=== PATIENT | male | born 1995 | race Caucasian/White ===

== ENCOUNTER 2020-04-20 18:51 | Inpatient (IN) | payer BC, OTHER ==
[2020-04-20 19:49] LABS: #Basophils 0.1 thou/uL (0.0-0.2); #Eosinphils 0.1 thou/uL (0.0-0.7); #Monocytes 0.5 thou/uL (0.11-0.59); #Neutrophils 4.9 thou/uL (1.40-6.50); %Basophils 1.2 % (0.0-1.0); %Eosinophils 1.2 % (0.0-10.0); %Monocytes 6.5 % (0.0-10.0); %Neutrophils 65.1 % (42.0-75.0); Hemoglobin 17.4 g/dL (14.0-18.0); Mean Corpuscular HGB CONC 34.5 g/dL (32.0-36.0); Mean Corpuscular Hemoglobin 29.4 pg (27.0-31.0); Mean Corpuscular Volume 85.2 fL (78.0-98.0); Mean Platelet Volume 10.3 fL (7.4-10.4); Platelet Count 149 thou/uL (130-400); RBC Distribution Width 11.5 % (11.5-14.5); Red Blood Cell (RBC) Count 5.93 mill/uL (4.70-6.10); White Blood Cell (WBC) Count 7.5 thou/uL (4.8-10.8)
[2020-04-20 20:22] LABS: ALT (SGPT) 146 U/L (8-55); AST (SGOT) 577 U/L (5-34); Albumin 4.5 g/dL (3.5-5.0); Alkaline Phosphatase 72 U/L (40-110); Anion Gap 15 mmol/L (10-20); BUN (Urea Nitrogen) 17 mg/dL (8.9-20.6); Bilirubin, Total 1.1 mg/dL (0.2-1.2); Calc. Creatinine Clearance 0 mL/min (70-130); Calcium 9.3 mg/dL (7.8-10.44); Carbon Dioxide 26 mmol/L (22-29); Chloride 103 mmol/L (98-107); Estimated GFR-MDRD 79; Globulin 2.7 g/dL (2.4-3.5); Glucose 128 mg/dL (70-105); Protein, Total 7.2 g/dL (6.0-8.3); Sodium 140 mmol/L (136-145)
[2020-04-20 21:28] LABS: Bacteria/HPF None Seen HPF (None Seen); Bilirubin Negative (Negative); Blood, Urine 3+ (Negative); Clarity Turbid (Clear); Glucose, Urine (Dipstick) Normal (Negative); Ketone, Urine Negative (Negative); Leukocyte Negative Leu/uL (Negative); Mucous/LPF Rare LPF (<2+); Nitrite Negative (Negative); Protein, Urine (Dipstick) 100 mg/dL (Neg-Trace); RBC/HPF 0-3 HPF (0-3); Squamous Epithelial None Seen HPF (0-3); Urobilinogen Normal mg/dL (Less than 2); WBC/HPF 0-3 HPF (0-3); pH, Urine 7.5 (5.0-9.0)
--- NOTE | 2020-04-20 22:59 | PDOC.FPRHP ---
- History of Present Illness Chief Complaint: Muscle pain and swelling History of Present Illness: 25 yo male with no significant PMH who presents to the ED for muscle pain and swelling. The patient started crossfit earlier this year. On Friday he attended a crossfit workout were he did multiple pull-ups and the next day noticed that he was sore. This soreness progressively worsened over the week and he began to noticing swelling in his bilateral upper extremities. He denies any pain or swelling of his lower extremities. He reports that his urine seems to be more yellow, but denies gross blood or brown urine. ED Course: 2 L bolus NS, 250 mls/hr NS - Allergies/Adverse Reactions Allergies Allergy/AdvReac Type Severity Reaction Status Date / Time meperidine [From Demerol] Allergy Verified 04/21/20 05:19 - Home Medications Medication Instructions Recorded Confirmed Type Multivit-Minerals/FA/Lycopene [One 1 tablet PO DAILY 04/21/20 04/21/20 History Daily For Men] [place]-3 Fatty Acids [[place]-3] 1 capsule PO DAILY 04/21/20 04/21/20 History - History PMHx: Migraine PSHx: femur, clavicle, 5th digit, wisdom teeth FHx: denies family hx Social: lives in [place], attends [employer]; Denies T/D, reports social drinking - Review of Systems General: denies: fever/chills, fatigue Eyes: denies: eye pain, vision changes ENT: denies: nasal congestion, rhinorrhea Respiratory: denies: cough, shortness of breath Cardiovascular: reports: edema. denies: chest pain Genitourinary: denies: dysuria Skin: denies: rashes, lesions Musculoskeletal: reports: pain, tenderness, stiffness, swelling Neurological: denies: numbness, weakness Psychological: denies: anxiety, depression - Vital signs BP: 147/87 HR: 91 RR: 18 Tmax: 98.4 Pox: 100% on RA Wt: 73 kg - Physical Exam Constitutional: NAD HEENT: normocephalic and atraumatic, grossly normal vision, grossly normal hearing Neck: supple, FROM Heart: RRR, normal S1/S2, no murmurs/rubs/gallops Lungs: CTAB, no respiratory distress, good air movement Abdomen: soft, non-tender, bowel sounds present -Musculoskeletal: Noticeably edematous and warm HAFSA extremities, unable to fully extend upper extremities Neurological: no focal deficit, CN II-XII intact, normal sensation Skin: no rash/lesions, no jaundice Heme/Lymphatic: no unusual bruising or bleeding, no purpura, no petechia Psychiatric: normal mood and affect, good judgment and insight, intact recent and remote memory FMR H&P: Results - Labs Result Diagrams: 04/20/20 19:35 04/28/20 04:44 Lab results: WBC 7.5 thou/uL (4.8-10.8) 04/20/20 19:35 Hgb 17.4 g/dL (14.0-18.0) 04/20/20 19:35 Hct 50.5 % (42.0-52.0) 04/20/20 19:35 MCV 85.2 fL (78.0-98.0) 04/20/20 19:35 Plt Count 149 thou/uL (130-400) 04/20/20 19:35 Neutrophils % 65.1 % (42.0-75.0) 04/20/20 19:35 Sodium 140 mmol/L (136-145) 04/20/20 19:35 Potassium 4.0 mmol/L (3.5-5.1) 04/20/20 19:35 Chloride 103 mmol/L (98-107) 04/20/20 19:35 Carbon Dioxide 26 mmol/L (22-29) 04/20/20 19:35 BUN 17 mg/dL (8.9-20.6) 04/20/20 19:35 Creatinine 1.13 mg/dL (0.7-1.3) 04/20/20 19:35 Glucose 128 mg/dL (70-105) H 04/20/20 19:35 Calcium 9.3 mg/dL (7.8-10.44) 04/20/20 19:35 Total Bilirubin 1.1 mg/dL (0.2-1.2) 04/20/20 19:35 AST 577 U/L (5-34) H 04/20/20 19:35 ALT 146 U/L (8-55) H 04/20/20 19:35 Alkaline Phosphatase 72 U/L (40-110) 04/20/20 19:35 Creatine Kinase Greater than 81426 U/L (30-200) H 04/20/20 19:35 Serum Total Protein 7.2 g/dL (6.0-8.3) 04/20/20 19:35 Albumin 4.5 g/dL (3.5-5.0) 04/20/20 19:35 Urine Ketones Negative mg/dL (Negative) 04/20/20 21:06 Urine Blood 3+ (Negative) A 04/20/20 21:06 Urine Nitrite Negative (Negative) 04/20/20 21:06 Ur Leukocyte Esterase Negative Kristie/uL (Negative) 04/20/20 21:06 Urine RBC 0-3 HPF (0-3) 04/20/20 21:06 Urine WBC 0-3 HPF (0-3) 04/20/20 21:06 Ur Squamous Epith Cells None Seen HPF (0-3) 04/20/20 21:06 Urine Bacteria None Seen HPF (None Seen) 04/20/20 21:06 FMR H&P: A/P - Problem List (1) Rhabdomyolysis Status: Acute Code(s): M62.82 - RHABDOMYOLYSIS (2) Transaminitis Status: Acute Code(s): R74.01 - ELEVATION OF LEVELS OF LIVER TRANSAMINASE LEVELS (3) Migraine Status: Chronic Code(s): G43.909 - MIGRAINE, UNSP, NOT INTRACTABLE, WITHOUT STATUS MIGRAINOSUS - Plan Rhabdomyolysis - pain and swelling of HAFSA extremitis following crossfit workout, no lower extremity symptoms - s/p 2 L NS followed by 250 mls/hr of NS in ED - CK: >40,000, will continue to trend - Urine: + protein, 3+ blood (myoglobin) - Cr: 1.13, BUN: 17, GFR: 79 - will continue fluids at 250 mls/hr of LF Transaminitis - likely 2/2 to rhabdo - AST/ALT: 577/146 - will continue to monitor Migraine - aware PCP: none Code: Full IVF: 250 mls/hr of LR Diet: Regular PPx: not indicated, walking program ordered Dispo: will admit to medical for further medical management; likely LOS > 48 hrs FMR H&P: Upper Level - Plan Date/Time: 04/20/20 0029 Arielle Gold, have evaluated this patient and agree with findings/plan as outlined by sports management internship resident. Pertinent changes/additions are listed here. 25YOM with not significant PMH who presented to ER for evaluation for arm pain and swelling. Reports he did crossfit on Friday of this week and since has had progressively worsening upper extremity swelling and pain. 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 On presentation his vitals were WNLs but lab workup was notable for a CPK >40k & a transaminitis w/ AST/ALT of 577/146. His urine also had 3+ blood. Was given 2L of NS & started on NS @ 250mL/hr in the ER. On exam he was in NAD but did have notable edema w/ limited full extension of his B/L UEs. Exam was otherwise unremarkable. Plan will be to admit him to the medical floor for continued aggressive IVF hydration with LR @ 250mL/hr for rhabdomyolysis. Will continue to trend his CPK & LFTs daily. Anticipated LOS at least 2 midnights pending clinical course. Patient is full code. Addendum - Attending - Attending Attestation Date/Time: 05/24/20 1033 I personally evaluated the patient and discussed the management with Dr. Moya on 04/20/20. I agree with the History, Examination, Assessment and Plan documented above with any addition or exceptions noted below. 25 y.o. WM w/o sig PMH developed rhabdomyolysis post high-intensity workout. IVF, monitor renal function and resolution.
[2020-04-20] MEDS ORDERED: Ondansetron PF 4 MG/2 ML Vial IVP PRN (23:01)
[2020-04-20] MEDS ORDERED: Ondansetron ODT 4 MG TAB PO PRN (23:01)
[2020-04-21] MEDS: Lactated Ringer's 1,000 ML IV SCH ×7 (00:16→23:01)
[2020-04-21 00:21] VITALS: BMI 23.6
[2020-04-21] MEDS: Acetaminophen 500 MG TAB PO SCH ×3 (05:21→22:06)
--- NOTE | 2020-04-21 05:54 | PDOC.FM ---
- Subjective Subjective: Pt resting comfortably in bed this AM. No acute events overnight. States that his arms are still swollen and that he had a tylenol last night for his soreness. Afebrile. Otherwise, no questions or other complaints at this time. - Objective Vital Signs & Weight: Vital Signs (12 hours) Temp Pulse Resp BP BP Pulse Ox 04/21/20 04:00 97.6 F 80 14 137/74 100 04/20/20 23:07 99.2 F 92 14 137/87 100 Weight Weight 72.575 kg Result Diagrams: 04/20/20 19:35 04/21/20 05:25 Phys Exam - Physical Examination Constitutional: NAD HEENT: PERRLA Neck: no nodes Respiratory: no wheezing, no rales, no rhonchi, clear to auscultation bilateral Cardiovascular: RRR, no significant murmur, no rub Gastrointestinal: soft, non-tender, no distention, positive bowel sounds Musculoskeletal: no edema, pulses present Neurological: non-focal, normal sensation, moves all 4 limbs Lymphatic: no nodes Psychiatric: normal affect, A&O x 3 Skin: no rash, normal turgor, cap refill <2 seconds Dx/Plan - Plan Plan: Rhabdomyolysis - pain and swelling of HAFSA extremitis following crossfit workout, no lower ext remity symptoms - s/p 2 L NS followed by 250 mls/hr of NS in ED - CK: >40,000, will continue to trend - Urine: + protein, 3+ blood (myoglobin) - Cr: 1.13, BUN: 17, GFR: 79 - will continue fluids at 250 mls/hr of LF - 04/21: BUN 12, Test Bore Helper 0.87, CK > 40,000 Transaminitis - likely 2/2 to rhabdo - AST/ALT: 577/146 initially - will continue to monitor - 04/21: 518/141 Migraine - aware - no further complaints at this time Code: Full IVF: 250 mls/hr of LR Diet: Regular PPx: not indicated, walking program ordered PCP: none Dispo as of 04/21: admitted to medical for further medical management; likely LOS > 48 hrs. continuing to diurese and monitoring symptoms and monitoring labs.
[2020-04-21 06:02] LABS: ALT (SGPT) 141 U/L (8-55); AST (SGOT) 518 U/L (5-34); Albumin 3.7 g/dL (3.5-5.0); Alkaline Phosphatase 51 U/L (40-110); Anion Gap 9 mmol/L (10-20); BUN (Urea Nitrogen) 12 mg/dL (8.9-20.6); Bilirubin, Total 1.1 mg/dL (0.2-1.2); Calc. Creatinine Clearance 133 mL/min (70-130); Calcium 8.2 mg/dL (7.8-10.44); Carbon Dioxide 26 mmol/L (22-29); Chloride 109 mmol/L (98-107); Estimated GFR-MDRD Greater than 90; Glucose 95 mg/dL (70-105); Potassium 4.2 mmol/L (3.5-5.1); Protein, Total 5.7 g/dL (6.0-8.3); Sodium 140 mmol/L (136-145)
[2020-04-21 06:34] LABS: CK (CPK) Greater than 40000 U/L (30-200)
[2020-04-21 11:32] LABS: SARS-CoV-2 MS2 Positive; SARS-CoV-2 N Gene Negative; SARS-CoV-2 S Gene Negative; SARS-CoV-2 by NAA Not Detected (NotDetected); SARS-CoV-2 orf1ab Negative
--- NOTE | 2020-04-21 12:07 | PRG ---
DATE OF SERVICE: 04/21/2020 Mr. Rm is a pleasant 25-year-old man who was admitted with an exercise-induced rhabdomyolysis with a CPK greater than 40,000. He had presented to the ER with some diffuse, but particularly upper extremity muscle pain and swelling. He is on fluids and was feeling improved. On admission, his creatinine was 1.13 with a GFR of 79, it is currently 0.87 with a greater than 90 GFR. For now, we will continue infusion of fluids at 250 mL/h. Job ID: [id number]
[2020-04-21] MEDS ORDERED: FLU VACC QS2020-21(6MOS UP)/PF 60 MCG/0.5 ML SYRINGE IM ONE (21:00)
[2020-04-22] MEDS: Lactated Ringer's 1,000 ML IV SCH ×6 (02:54→23:24)
--- NOTE | 2020-04-22 05:47 | PDOC.FM ---
- Subjective Subjective: Patient is resting comfortably in bed. No new complaints. States he still has swelling in his upper extremities, however it is improved today and his ROM is improved. No complaints in lower extremities, no chest pain or SOB. - Objective MAR Reviewed: Yes Vital Signs & Weight: Vital Signs (12 hours) Temp Pulse Resp BP Pulse Ox 04/21/20 20:00 98.5 F 59 L 16 122/68 100 Weight Weight 72.575 kg I&O: 04/20/20 04/21/20 04/22/20 06:59 06:59 06:59 Intake Total 1590 4280 Output Total 1050 4310 Balance 540 -30 Result Diagrams: 04/20/20 19:35 04/22/20 05:07 Phys Exam - Physical Examination Constitutional: NAD HEENT: PERRLA, moist MMs Respiratory: no wheezing, clear to auscultation bilateral Cardiovascular: RRR, no significant murmur Gastrointestinal: soft, non-tender, positive bowel sounds mild edema in bilateral UE, unable to fully extend Neurological: non-focal, normal sensation Psychiatric: normal affect, A&O x 3 Skin: no rash Dx/Plan - Plan Plan: Rhabdomyolysis - pain and swelling of HAFSA extremitis following crossfit workout, no lower extremity symptoms - CK remains >40,000, will continue to trend - Urine: + protein, 3+ blood (myoglobin) - Cr: .78 GFR: >90 - will continue fluids at 250 mls/hr of LF Transaminitis - likely 2/2 to rhabdo - AST/ALT: 577/146 initially, now 519/164 - will continue to monitor Migraine - aware - no further complaints at this time Code: Full IVF: 250 mls/hr of LR Diet: Regular PPx: not indicated, walking program ordered PCP: none Dispo as of 04/22: likely LOS >5 days. continuing to diurese and monitoring symptoms and monitoring labs. Addendum - Attending - Attending Attestation Date/Time: 04/22/20 0910 I personally evaluated the patient and discussed the management with Dr. Alvarez. I agree with the History, Examination, Assessment and Plan documented above with any addition or exceptions noted below. Patient feeling well, soreness improved. Continue IVF aggressively for rhabdo. He did have evidence of myoglobinuria but fortunately his renal function is normal. Strict I/O.
[2020-04-22] MEDS: Acetaminophen 500 MG TAB PO SCH ×3 (05:55→21:16)
[2020-04-22 06:11] LABS: ALT (SGPT) 164 U/L (8-55); AST (SGOT) 519 U/L (5-34); Albumin 3.4 g/dL (3.5-5.0); Alkaline Phosphatase 45 U/L (40-110); Anion Gap 11 mmol/L (10-20); BUN (Urea Nitrogen) 9 mg/dL (8.9-20.6); Calc. Creatinine Clearance 161 mL/min (70-130); Calcium 8.1 mg/dL (7.8-10.44); Carbon Dioxide 25 mmol/L (22-29); Chloride 107 mmol/L (98-107); Estimated GFR-MDRD Greater than 90; Globulin 1.9 g/dL (2.4-3.5); Glucose 89 mg/dL (70-105); Potassium 4.2 mmol/L (3.5-5.1); Protein, Total 5.3 g/dL (6.0-8.3); Sodium 139 mmol/L (136-145)
[2020-04-22 06:46] LABS: CK (CPK) Greater than 40000 U/L (30-200)
[2020-04-23] MEDS: Lactated Ringer's 1,000 ML IV SCH ×6 (03:06→23:45)
--- NOTE | 2020-04-23 06:11 | PDOC.FM ---
- Subjective Subjective: Patient is resting comfortably in bed. Reports improved extension of bilateral upper extremities. Denies other complains. - Objective MAR Reviewed: Yes Vital Signs & Weight: Vital Signs (12 hours) Temp Pulse Resp BP Pulse Ox 04/22/20 19:34 99.0 F 65 16 135/77 100 Weight Weight 78.608 kg I&O: 04/21/20 04/22/20 04/23/20 06:59 06:59 06:59 Intake Total 1590 7280 4480 Output Total 1050 5310 5442 Balance 540 1969 -99 Result Diagrams: 04/20/20 19:35 04/23/20 07:14 Phys Exam - Physical Examination Constitutional: NAD HEENT: PERRLA, moist MMs Respiratory: no wheezing, clear to auscultation bilateral Cardiovascular: RRR, no significant murmur Gastrointestinal: soft, non-tender, positive bowel sounds mild edema bilateral UE, unable to fully extend bilateral UE Neurological: non-focal Psychiatric: normal affect, A&O x 3 Skin: no rash Dx/Plan - Plan Plan: Rhabdomyolysis - pain and swelling of HAFSA extremitis following crossfit workout, no lower extremity symptoms - CK remains >40,000, will continue to trend - Urine: + protein, 3+ blood (myoglobin) - Cr: .78 GFR: >90 - will reduce fluids to 200 mls/hr of LR today, and encourage light walking Transaminitis - likely 2/2 to rhabdo - AST/ALT: 577/146 --> 519/164 --> 513/193 - will continue to monitor Migraine - aware - no further complaints at this time Code: Full IVF: 200 mls/hr of LR Diet: Regular PPx: not indicated, walking program ordered PCP: none Dispo as of 04/23: likely LOS >5 days. continuing IVF and monitoring symptoms and monitoring labs. Addendum - Attending - Attending Attestation Date/Time: 04/23/20 0714 I personally evaluated the patient and discussed the management with Dr. Alvarez. I agree with the History, Examination, Assessment and Plan documented above with any addition or exceptions noted below. Patient feeling improved. Encouraged to ambulate this morning. Awaiting CK but anticipate it will still be fairly high. Renal function and UOP has been stable.
[2020-04-23] MEDS: Acetaminophen 500 MG TAB PO SCH ×3 (06:19→21:22)
[2020-04-23 07:42] LABS: ALT (SGPT) 193 U/L (8-55); AST (SGOT) 513 U/L (5-34); Albumin 3.6 g/dL (3.5-5.0); Alkaline Phosphatase 49 U/L (40-110); Anion Gap 13 mmol/L (10-20); BUN (Urea Nitrogen) 7 mg/dL (8.9-20.6); Bilirubin, Total 1.3 mg/dL (0.2-1.2); Calc. Creatinine Clearance 151 mL/min (70-130); Calcium 8.7 mg/dL (7.8-10.44); Carbon Dioxide 27 mmol/L (22-29); Chloride 107 mmol/L (98-107); Estimated GFR-MDRD Greater than 90; Globulin 2.2 g/dL (2.4-3.5); Glucose 92 mg/dL (70-105); Potassium 4.1 mmol/L (3.5-5.1); Protein, Total 5.8 g/dL (6.0-8.3); Sodium 143 mmol/L (136-145)
[2020-04-23 08:43] LABS: CK (CPK) Greater than 40000 U/L (30-200)
--- NOTE | 2020-04-23 10:54 | PDOC.BPN ---
- Brief Progress Note Received a call from the nurse that the patient was having increased swelling in his left forearm and some parasthesias in his left elbow. We ordered a Left arm US and went to bedside to assess. Patient has no pain with active or passive ROM, no tenderness to palpation, warmth is present, pulses intact, and denies parasthesias anywhere. We discussed warning signs with the patient to notify us if anything is concerning for compartment syndrome, however patient noted he has been laying on that arm and it is likely 2/2 relocation of his already present left upper arm edema.
--- NOTE | 2020-04-23 12:47 | ULT ---
EXAM: Left upper extremity venous Doppler HISTORY: Increased edema left upper extremity. FINDINGS: There is normal flow seen within the left internal jugular and subclavian veins. There is normal thierno nal compressibility and flow involving the left axillary and brachial veins as well as the left upper extremity ulnar and radial veins. There is normal luminal compressibility and flow involving the left upper extremity basilic and cepha lic veins. The left upper extremity basilic vein in the forearm is very small in caliber and difficult to evaluate at this level. Subcutaneous edema seen within the upper arm and to a lesser extent involving the lower arm. IMPRESSION: 1. No evidence of a deep vein thrombosis in the visualized deep venous structures left upper extremit y. 2. Mild subcutaneous edema.
[2020-04-24] MEDS: Lactated Ringer's 1,000 ML IV SCH ×4 (04:29→20:30)
[2020-04-24] MEDS: Acetaminophen 500 MG TAB PO SCH ×3 (05:06→21:22)
--- NOTE | 2020-04-24 05:49 | PDOC.FM ---
- Subjective Subjective: Mr. Rm is doing well this morning. The swelling in his left arm has improved from yesterday. He does note it was slightly swollen when he first woke up this morning so he thinks he slept on it again. He denies any muscle aches, headache, or CP. - Objective Vital Signs & Weight: Vital Signs (12 hours) Temp Pulse Resp BP Pulse Ox 04/23/20 20:00 98.8 F 62 16 122/62 100 Weight Weight 77.111 kg I&O: 04/22/20 04/23/20 04/24/20 06:59 06:59 06:59 Intake Total 7280 4540 5980 Output Total 5310 6025 5300 Balance 1969 -0516 680 Result Diagrams: 04/20/20 19:35 04/24/20 05:41 Additional Labs: [place] - [id number] Phys Exam - Physical Examination Constitutional: NAD HEENT: moist MMs, sclera anicteric Neck: full ROM Respiratory: no wheezing, clear to auscultation bilateral Cardiovascular: RRR, no significant murmur Gastrointestinal: soft, non-tender, no distention, positive bowel sounds Musculoskeletal: no edema, pulses present Neurological: moves all 4 limbs Psychiatric: normal affect, A&O x 3 Dx/Plan - Plan Plan: Rhabdomyolysis - pain and swelling of HAFSA extremitis following crossfit workout, no lower extremity symptoms - CK >40,000 on admission. [id number] today - Urine: + protein, 3+ blood (myoglobin) on admission - Cr: .86 GFR: >90 - Continue fluids at 200 mls/hr of LR today, and encourage light walking - Trend CK to 5000-10,000 before discharge Transaminitis - likely 2/2 to rhabdo - AST/ALT: 577/146 --> 519/164 --> 513/193 --> 372/184 - will continue to monitor Migraine - aware - no further complaints at this time Code: Full IVF: 200 mls/hr of LR Diet: Regular PPx: not indicated, walking program ordered PCP: none Dispo as of 04/24: likely LOS 3-4 days. continuing IVF and monitoring symptoms and monitoring labs. Addendum - Attending - Attending Attestation Date/Time: 04/24/20 1103 I personally evaluated the patient and discussed the management with Dr. Kay. I agree with the History, Examination, Assessment and Plan documented above with any addition or exceptions noted below.
[2020-04-24 06:21] LABS: ALT (SGPT) 184 U/L (8-55); AST (SGOT) 372 U/L (5-34); Albumin 3.6 g/dL (3.5-5.0); Alkaline Phosphatase 45 U/L (40-110); Anion Gap 12 mmol/L (10-20); BUN (Urea Nitrogen) 9 mg/dL (8.9-20.6); Bilirubin, Total 1.3 mg/dL (0.2-1.2); Calc. Creatinine Clearance 143 mL/min (70-130); Calcium 8.5 mg/dL (7.8-10.44); Carbon Dioxide 26 mmol/L (22-29); Chloride 105 mmol/L (98-107); Estimated GFR-MDRD Greater than 90; Globulin 2.1 g/dL (2.4-3.5); Glucose 94 mg/dL (70-105); Potassium 4.1 mmol/L (3.5-5.1); Protein, Total 5.7 g/dL (6.0-8.3); Sodium 139 mmol/L (136-145)
[2020-04-24 06:48] LABS: CK (CPK) 24792 U/L (30-200)
[2020-04-24 15:20] LABS: Bacteria/HPF None Seen HPF (None Seen); Bilirubin Negative (Negative); Blood, Urine Negative (Negative); Clarity Clear (Clear); Glucose, Urine (Dipstick) Normal (Negative); Ketone, Urine Negative (Negative); Leukocyte Negative Leu/uL (Negative); Nitrite Negative (Negative); Protein, Urine (Dipstick) Negative (Neg-Trace); RBC/HPF 0-3 HPF (0-3); Specific Gravity, Urine 1.008 (1.002-1.036); Squamous Epithelial None Seen HPF (0-3); Urobilinogen Normal mg/dL (Less than 2); WBC/HPF 0-3 HPF (0-3)
[2020-04-25] MEDS: Lactated Ringer's 1,000 ML IV SCH ×4 (01:30→20:23)
[2020-04-25 05:38] LABS: ALT (SGPT) 162 U/L (8-55); AST (SGOT) 234 U/L (5-34); Albumin 3.6 g/dL (3.5-5.0); Alkaline Phosphatase 51 U/L (40-110); Anion Gap 12 mmol/L (10-20); BUN (Urea Nitrogen) 10 mg/dL (8.9-20.6); Bilirubin, Total 0.7 mg/dL (0.2-1.2); Calc. Creatinine Clearance 148 mL/min (70-130); Calcium 8.5 mg/dL (7.8-10.44); Carbon Dioxide 25 mmol/L (22-29); Chloride 106 mmol/L (98-107); Estimated GFR-MDRD Greater than 90; Globulin 2.1 g/dL (2.4-3.5); Glucose 100 mg/dL (70-105); Protein, Total 5.7 g/dL (6.0-8.3); Sodium 139 mmol/L (136-145)
--- NOTE | 2020-04-25 05:44 | PDOC.FM ---
- Subjective Subjective: Mr. Rm is doing well this morning. He denies any pain or weakness. - Objective Vital Signs & Weight: Vital Signs (12 hours) Temp Pulse Resp BP Pulse Ox 04/24/20 20:00 98.2 F 70 16 140/69 100 Weight Weight 77.111 kg I&O: 04/23/20 04/24/20 04/25/20 06:59 06:59 06:59 Intake Total 4540 5980 9040 Output Total 6025 5300 4350 Balance -7260 657 1856 Result Diagrams: 04/20/20 19:35 04/25/20 05:06 Additional Labs: [place] - [id number] Phys Exam - Physical Examination Constitutional: NAD HEENT: moist MMs, sclera anicteric Neck: full ROM Respiratory: no wheezing, clear to auscultation bilateral Cardiovascular: RRR, no significant murmur Gastrointestinal: soft, non-tender, no distention, positive bowel sounds Musculoskeletal: no edema, pulses present Neurological: moves all 4 limbs Psychiatric: normal affect, A&O x 3 Dx/Plan - Plan Plan: Rhabdomyolysis - pain and swelling of HAFSA extremitis following crossfit workout, no lower extremity symptoms - CK >40,000 on admission. [id number]>53714 - Urine: + protein, 3+ blood (myoglobin) on admission - Cr: .83 GFR: >90 - Continue fluids at 200 mls/hr of LR today, and encourage light walking - Trend CK to <1500 before discharge Transaminitis - likely 2/2 to rhabdo - AST/ALT: 577/146 --> 519/164 --> 513/193 --> 372/184 --> 234/162 - will continue to monitor Migraine - aware - no further complaints at this time Code: Full IVF: 200 mls/hr of LR Diet: Regular PPx: not indicated, walking program ordered PCP: none Dispo as of 04/25: likely LOS 3-4 days. continuing IVF and monitoring symptoms and monitoring labs. Addendum - Attending - Attending Attestation Date/Time: 04/25/20 1117 I personally evaluated the patient and discussed the management with Dr. Kay. I agree with the History, Examination, Assessment and Plan documented above with any addition or exceptions noted below. Patient continues to improve. CK downtrending as expected. UA repeat did not reveal any casts or myoglobin. Continue mild IV hydration, encourage ambulation. Hopeful d/c in the coming days.
[2020-04-25 06:10] LABS: CK (CPK) 13749 U/L (30-200)
[2020-04-25] MEDS: Acetaminophen 500 MG TAB PO SCH ×3 (06:12→21:01)
[2020-04-26 04:31] LABS: ALT (SGPT) 140 U/L (8-55); AST (SGOT) 150 U/L (5-34); Albumin 3.5 g/dL (3.5-5.0); Alkaline Phosphatase 54 U/L (40-110); Anion Gap 12 mmol/L (10-20); BUN (Urea Nitrogen) 10 mg/dL (8.9-20.6); Bilirubin, Total 0.5 mg/dL (0.2-1.2); Calc. Creatinine Clearance 145 mL/min (70-130); Calcium 8.5 mg/dL (7.8-10.44); Carbon Dioxide 25 mmol/L (22-29); Chloride 107 mmol/L (98-107); Estimated GFR-MDRD Greater than 90; Glucose 121 mg/dL (70-105); Potassium 3.7 mmol/L (3.5-5.1); Protein, Total 5.5 g/dL (6.0-8.3); Sodium 140 mmol/L (136-145)
[2020-04-26] MEDS: Lactated Ringer's 1,000 ML IV SCH ×4 (04:43→19:37)
[2020-04-26 04:44] LABS: CK (CPK) 7581 U/L (30-200)
[2020-04-26] MEDS: Acetaminophen 500 MG TAB PO SCH ×3 (05:28→21:26)
--- NOTE | 2020-04-26 05:52 | PDOC.FM ---
- Subjective Subjective: Mr. Rm is feeling well this morning. He has no complaints. - Objective Vital Signs & Weight: Vital Signs (12 hours) Temp Pulse Resp BP Pulse Ox 04/25/20 20:20 100 04/25/20 20:00 98.2 F 65 16 136/82 100 Weight Weight 76.799 kg I&O: 04/24/20 04/25/20 04/26/20 06:59 06:59 06:59 Intake Total 5980 9040 7520 Output Total 5300 5050 4460 Balance 680 3990 3060 Result Diagrams: 04/20/20 19:35 04/26/20 03:31 Additional Labs: CK - [id number] Phys Exam - Physical Examination Constitutional: NAD HEENT: moist MMs, sclera anicteric Neck: full ROM Respiratory: no wheezing, clear to auscultation bilateral Cardiovascular: RRR, no significant murmur Gastrointestinal: soft, non-tender, no distention, positive bowel sounds Musculoskeletal: no edema, pulses present Neurological: moves all 4 limbs Psychiatric: normal affect, A&O x 3 Dx/Plan - Plan Plan: Rhabdomyolysis - pain and swelling of HAFSA extremitis following crossfit workout, no lower extremity symptoms - CK >40,000 on admission. [id number]>59252>7581 - Urine: + protein, 3+ blood (myoglobin) on admission - Cr: .86 GFR: >90 - Continue fluids at 150 mls/hr of LR today, and encourage light walking - Trend CK to <1500 before discharge Transaminitis - likely 2/2 to rhabdo - AST/ALT: 372/184 --> 234/162 --> 150/140 - will continue to monitor Migraine - aware - no further complaints at this time Code: Full IVF: 200 mls/hr of LR Diet: Regular PPx: not indicated, walking program ordered PCP: none Dispo as of 04/26: likely LOS 2-3 days. continuing IVF and monitoring symptoms and monitoring labs. Addendum - Attending - Attending Attestation Date/Time: 04/26/20 1112 I personally evaluated the patient and discussed the management with Dr. Kay. I agree with the History, Examination, Assessment and Plan documented above with any addition or exceptions noted below. Patient continues to improve. CK downtrending. Hopeful to dc in 1-2 days pending CK trend. Continue ambulation.
[2020-04-27] MEDS: Lactated Ringer's 1,000 ML IV SCH ×4 (06:10→23:39)
[2020-04-27] MEDS: Acetaminophen 500 MG TAB PO SCH ×3 (06:10→23:40)
--- NOTE | 2020-04-27 06:11 | PDOC.FM ---
- Subjective Subjective: Mr. Rm is doing well this morning. He has no complaints. - Objective Vital Signs & Weight: Vital Signs (12 hours) Temp Pulse Resp BP Pulse Ox 04/26/20 19:35 100 04/26/20 19:30 98.6 F 81 12 135/71 100 Weight Weight 76.799 kg I&O: 04/25/20 04/26/20 04/27/20 06:59 06:59 06:59 Intake Total 9040 9933 4120 Output Total 5050 6270 Balance 3990 3663 4120 Result Diagrams: 04/20/20 19:35 04/27/20 03:50 Phys Exam - Physical Examination Constitutional: NAD HEENT: moist MMs, sclera anicteric Neck: full ROM Respiratory: no wheezing, clear to auscultation bilateral Cardiovascular: RRR, no significant murmur Gastrointestinal: soft, non-tender, no distention Musculoskeletal: no edema, pulses present Neurological: moves all 4 limbs Psychiatric: normal affect, A&O x 3 Dx/Plan - Plan Plan: Rhabdomyolysis - pain and swelling of HAFSA extremitis following crossfit workout, no lower extremity symptoms - CK >40,000 on admission. 11269>[id number]>7581>3900 - Urine: + protein, 3+ blood (myoglobin) on admission - Cr: .86 GFR: >90 - Continue fluids at 150 mls/hr of LR today, and encourage light walking - Trend CK to <1500 before discharge Transaminitis - likely 2/2 to rhabdo - AST/ALT: 372/184 --> 234/162 --> 150/140--> 97/127 - will continue to monitor Migraine - aware - no further complaints at this time Code: Full IVF: 100 mls/hr of LR Diet: Regular PPx: not indicated, walking program ordered PCP: none Dispo: Likely discharge tomorrow. 1 week followup if CK > 1500. continuing IVF and monitoring symptoms and monitoring labs. Addendum - Attending - Attending Attestation Date/Time: 04/27/20 1122 I personally evaluated the patient and discussed the management with Dr. Kay. I agree with the History, Examination, Assessment and Plan documented above with any addition or exceptions noted below.
[2020-04-27 09:43] LABS: ALT (SGPT) 127 U/L (8-55); AST (SGOT) 97 U/L (5-34); Albumin 3.7 g/dL (3.5-5.0); Alkaline Phosphatase 54 U/L (40-110); Anion Gap 12 mmol/L (10-20); BUN (Urea Nitrogen) 7 mg/dL (8.9-20.6); Bilirubin, Total 0.5 mg/dL (0.2-1.2); CK (CPK) 3902 U/L (30-200); Calc. Creatinine Clearance 144 mL/min (70-130); Calcium 8.6 mg/dL (7.8-10.44); Carbon Dioxide 27 mmol/L (22-29); Chloride 105 mmol/L (98-107); Estimated GFR-MDRD Greater than 90; Globulin 2.1 g/dL (2.4-3.5); Glucose 100 mg/dL (70-105); Potassium 3.9 mmol/L (3.5-5.1); Protein, Total 5.8 g/dL (6.0-8.3); Sodium 140 mmol/L (136-145)
[2020-04-28 05:25] LABS: ALT (SGPT) 112 U/L (8-55); AST (SGOT) 65 U/L (5-34); Albumin 3.7 g/dL (3.5-5.0); Alkaline Phosphatase 48 U/L (40-110); Anion Gap 10 mmol/L (10-20); BUN (Urea Nitrogen) 9 mg/dL (8.9-20.6); Bilirubin, Total 0.8 mg/dL (0.2-1.2); CK (CPK) 2151 U/L (30-200); Calc. Creatinine Clearance 151 mL/min (70-130); Calcium 8.7 mg/dL (7.8-10.44); Carbon Dioxide 28 mmol/L (22-29); Chloride 105 mmol/L (98-107); Estimated GFR-MDRD Greater than 90; Globulin 2.3 g/dL (2.4-3.5); Glucose 97 mg/dL (70-105); Sodium 139 mmol/L (136-145)
--- NOTE | 2020-04-28 06:12 | PDOC.FM ---
- Subjective Subjective: Mr. Rm has no complaints this morning. He denies any weakness or soreness. - Objective Vital Signs & Weight: Vital Signs (12 hours) Temp Pulse Resp BP Pulse Ox 04/27/20 20:00 100 04/27/20 19:08 98.2 F 61 12 133/71 100 Weight Weight 76.799 kg I&O: 04/26/20 04/27/20 04/28/20 06:59 06:59 06:59 Intake Total 9933 6410 2970 Output Total 6270 1100 2440 Balance 3663 5310 530 Result Diagrams: 04/20/20 19:35 04/28/20 04:44 Additional Labs: CK: 2151, AST: 65, ALT: 112 Phys Exam - Physical Examination Constitutional: NAD HEENT: moist MMs, sclera anicteric Neck: full ROM Respiratory: no wheezing, clear to auscultation bilateral Cardiovascular: RRR, no significant murmur Gastrointestinal: soft, non-tender, no distention, positive bowel sounds Musculoskeletal: no edema, pulses present Neurological: moves all 4 limbs Psychiatric: normal affect, A&O x 3 Dx/Plan - Plan Plan: Rhabdomyolysis - pain and swelling of HAFSA extremitis following crossfit workout, no lower extremity symptoms - CK >40,000 on admission. 2150 today - Urine: + protein, 3+ blood (myoglobin) on admission. Repeat urine clear. - Cr: .86 GFR: >90 - Continue fluids at 100 mls/hr of LR today, and encourage light walking - Trend CK to <2000 before discharge. If between 5064-1016 will want outpatient follow-up within one week. Transaminitis - likely 2/2 to rhabdo - AST/ALT: 65/112 today - will continue to monitor Migraine - aware - no further complaints at this time Code: Full IVF: 100 mls/hr of LR Diet: Regular PPx: not indicated, walking program ordered PCP: none Dispo: Will recheck CK this afternoon and likely discharge if <2000. 1 week followup if CK > 1500. continuing IVF and monitoring symptoms and monitoring labs. Addendum - Attending - Attending Attestation Date/Time: 04/28/20 9567 I personally evaluated the patient and discussed the management with Dr. Kay. I agree with the History, Examination, Assessment and Plan documented above with any addition or exceptions noted below.
[2020-04-28] MEDS: Lactated Ringer's 1,000 ML IV SCH (06:18)
[2020-04-28] MEDS: Acetaminophen 500 MG TAB PO SCH (06:23)
[2020-04-28] MEDS ORDERED: Lactated Ringer's 1,000 ML IV SCH (07:57)
[2020-04-28 08:25] VITALS: BP 130/60; TEMP 98.1
--- NOTE | 2020-04-30 11:56 | DIS ---
DATE OF ADMISSION: 04/20/2020 DATE OF DISCHARGE: 04/28/2020 RESIDENT: Sadi Kay MD ADMITTING ATTENDING: Donnie Cartwright MD DISCHARGE ATTENDING: Long Rangel MD CONSULTATIONS: None. PROCEDURES: None. PRIMARY DIAGNOSES: Rhabdomyolysis and transaminitis. SECONDARY DIAGNOSES: Migraines. DISCHARGE MEDICATIONS: None. DISCONTINUED MEDICATIONS: None. HISTORY OF PRESENT ILLNESS AND BRIEF HOSPITAL COURSE: Noam Rm is a 25-year-old male with no significant past medical history, who presented to the ED for muscle pain and swelling. The pain started after completing a workout at [employer]. The soreness progressively worsened over the week and he began to notice swelling in his bilateral upper extremities. He denied any pain or swelling in his lower extremities and reports that his urine seem to be more yellow, but denied any gross blood or brown urine. On admission, the patient's creatine kinase was found to be greater than 40,000. His AST was 577 and his ALT was 147. Patient was given IV fluids and monitored daily. After 8 days of hospitalization, patient's creatinine kinase was 2151. His AST was 65 and his ALT was 112. Patient is a reliable young man, was instructed to follow up with a doctor by Friday or Friday to recheck his CMP and his CK. DISPOSITION: Stable. DISCHARGE INSTRUCTIONS: 1. Location: Home. 2. Diet: regular. 3. Activity: Instructed to avoid heavy weightlifting for approximately the next month. 4. Followup early next week with a primary physician for recheck of creatinine kinase and liver functions. Job ID: [id number]
--- NOTE | 2020-05-01 03:19 | PQF ---
Dear : Long Degroot Date 05/01/20 Please exercise your independent, professional judgment in responding to the clarification form. Clinical indicators are provided on the bottom of this form for your review Can you please further clarify the specificity of Rhabdomyolysis? Please check appropriate box(es): [ X ] Non-traumatic Rhabdomyolysis [ ] Traumatic Rhabdomyolysis [ ] Other diagnosis please specify [ ] Unable to determine Physician Signature: Date/Time: For continuity of documentation, please document condition throughout progress notes and discharge summary. Thank You. To be completed by CDI/Coding staff for physician review: Present Clinical Indicators - Signs / Symptoms / Labs Results and Location in Medical Record [ x ] Muscle pain and swelling H and P pg.1 [ x ] Attended a cross fit were he did multiple pull-ups and the next day noticed he was sore H and P pg.1 [ x ] Rhabdomyolysis H and P pg.3 [ x ] Pain and swelling of HAFSA extremities following cross-fit workout Family Med PN pg.2 04/21 [ x ] CPK greater than 40,000 PN pg.1 10 [ x ] Exercise- induced rhabdomyolysis PN pg.1 04/21 [ x ] CK: 40,000H, 31027W, 77468Y, 7581H, 3902H, 2151H Laboratory Present Risk Factors Results and Location in Medical Record [ x ] Muscle pain/swelling H and P pg.1 [ x ] s/p cross fit H and P pg.1 Present Treatments Results and Location in Medical Record [ x ] IV Fluids MAR [ x ] CK monitoring Laboratory [ x ] Tylenol 1000 mg PO MAR CDS/Document Processing Specialist Signature: Jose Antonio Fan Phone #: [phone] Date 05/01/20 This is a permanent part of the Medical Record [facility]
== END 2020-04-28 11:59 | disposition home or self-care (01) | DRG 558 ==
LOC: ERS 18:51 → ONC 21:42
PROVIDERS: ADMIT Family Medicine; ATTEND Family Medicine
DX: M62.82 Rhabdomyolysis (principal); G43.909 Migraine, unspecified, not intractable, without status migrainosus; Z20.828 Contact with and (suspected) exposure to other viral communicable diseases
CPT/HCPCS: 36415; 80053; 81001; 81003; 81015; 82550; 85025; 87635; 96360; 96361; U0003